=== PATIENT | female | born 1950 | race Caucasian/White ===

== ENCOUNTER 2022-02-22 11:27 | Emergency (ER) | payer MEDICARE ==
[~2022-02-22] VITALS: Ht 165.1 cm; Wt 104.5 kg
[~2022-02-22 11:27] MED LIST: AMRIX; ANTIOXIDENT; ATEN100T; AVAP150T; BABY81CH; CALC600T10; HYDR25TA6; K-LO20PO; LIDO5DIS; LOVA20TA2; METF500T4; MULTIVIT; POTA20TA2; PRIL20CA; SAVELLA; estroven
[2022-02-22] MEDS ORDERED: LABETALOL 100MG/20ML VIAL IV STA (12:30)
[2022-02-22] MEDS ORDERED: MORPHINE 4 MG/ML 1ML VIAL IV PRN (12:45)
[2022-02-22] MEDS ORDERED: ONDANSETRON 4MG 2ML VIAL IV ONE (12:45)
[2022-02-22] MEDS ORDERED: BOOSTRIX/ADACEL VACCINE (DIPHTH/PERTUSS/ACELL/TETANUS) 0.5ML SYR IM.IMMUN ONE (12:50)
[2022-02-22 12:55] LABS: HEMATOCRIT 41.3 % (36.0-47.0); HEMOGLOBIN 13.3 g/dl (12.0-15.5); MEAN CORPUSCULAR HGB CONC 32.2 g/dl (32.0-36.5); MEAN CORPUSCULAR VOLUME 99.3 fl (80.0-96.0); PLATELET COUNT, AUTOMATED 247 10^3/uL (150-450); RED BLOOD COUNT 4.16 10^6/uL (4.00-5.40); WHITE BLOOD COUNT 10.8 10^3/uL (4.0-10.0)
[2022-02-22 13:24] VITALS: BP 206/81
[2022-02-22 13:49] LABS: RSV AMPLIFICATION NEGATIVE (NEGATIVE)
[2022-02-22 14:01] VITALS: BP 180/90
== END 2022-02-22 14:15 | disposition short-term general hospital (02) ==
LOC: EDBD 11:27 → M ED 11:27
DX: S06.5X0A Traumatic subdural hemorrhage without loss of consciousness, initial encounter (principal); S02.2XXA Fracture of nasal bones, initial encounter for closed fracture; S03.2XXA Dislocation of tooth, initial encounter; W00.0XXA Fall on same level due to ice and snow, initial encounter; M50.20 Other cervical disc displacement, unspecified cervical region; I10 Essential (primary) hypertension; K21.9 Gastro-esophageal reflux disease without esophagitis; E78.5 Hyperlipidemia, unspecified; E11.9 Type 2 diabetes mellitus without complications; G89.29 Other chronic pain; M54.9 Dorsalgia, unspecified; Z88.2 Allergy status to sulfonamides; Z79.899 Other long term (current) drug therapy; Z79.82 Long term (current) use of aspirin; Z79.84 Long term (current) use of oral hypoglycemic drugs
CPT/HCPCS: 70450; 70486; 71045; 72125; 80047; 85027; 87631; 90471; 90715; 93041; 94760; 96374; 96375; 99285; J2270; J2405

== ENCOUNTER → 2022-03-06 | Outpatient (CLI) | payer MEDICARE | LOC: M PLAIMG 12:25 | PROVIDERS: ATTEND Neurological Surgery | DX: S06.5XAA Traumatic subdural hemorrhage with loss of consciousness status unknown, initial encounter (principal); W18.30XA Fall on same level, unspecified, initial encounter; Y92.009 Unspecified place in unspecified non-institutional (private) residence as the place of occurrence of the external cause ==